=== PATIENT | female | born 2005 | race Caucasian/White ===

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

== ENCOUNTER 2024-03-11 13:22 | Inpatient (IN) | payer OTHER ==
[~2024-03-11] VITALS: Ht 165.1 cm; Wt 60.0 kg
[2024-03-11] MEDS: NICOTINE 14 MG/24 HR TRANSDERMAL TD SCH (09:00)
[~2024-03-11 13:22] MED LIST: LEVO1TAB40 PO
[2024-03-11 14:04] LABS: HEMATOCRIT 42.3 % (36.0-47.0); HEMOGLOBIN 14.1 g/dl (12.0-15.5); MEAN CORPUSCULAR HEMOGLOBIN 30.7 pg (27.0-33.0); MEAN CORPUSCULAR HGB CONC 33.3 g/dl (32.0-36.5); MEAN CORPUSCULAR VOLUME 92.2 fl (80.0-96.0); PLATELET COUNT, AUTOMATED 327 10^3/uL (150-450); RED BLOOD COUNT 4.59 10^6/uL (4.00-5.40); WHITE BLOOD COUNT 6.9 10^3/uL (4.0-10.0)
[2024-03-11 14:28] LABS: HCG, SERUM QUALITATIVE NEGATIVE (NEGATIVE)
[2024-03-11 14:33] LABS: AMPHETAMINES LEVEL URINE NEGATIVE (NEGATIVE); BARBITURATES URINE NEGATIVE (NEGATIVE); BENZODIAZEPINES URINE NEGATIVE (NEGATIVE); CANNABINOIDS URINE NEGATIVE (NEGATIVE); COCAINE METABOLITE URINE NEGATIVE (NEGATIVE); METHADONE URINE NEGATIVE (NEGATIVE); OPIATES URINE NEGATIVE (NEGATIVE); PHENCYCLIDINE URINE NEGATIVE (NEGATIVE)
[2024-03-11 14:40] LABS: ETHYL ALCOHOL (ETHANOL) < 0.003 % (0.000-0.010)
[2024-03-11 14:41] LABS: SALICYLATE LEVEL < 3.0 MG/DL (<30)
[2024-03-11 14:42] LABS: ALBUMIN 4.5 G/DL (3.2-5.2); ALKALINE PHOSPHATASE 84 U/L (35-104); ALT/SGPT 28 U/L (7.0-40); AST/SGOT 20 U/L (<34); BILIRUBIN,DIRECT 0.3 MG/DL (<0.4); BILIRUBIN,TOTAL 0.7 MG/DL (0.3-1.2); BLOOD UREA NITROGEN 22 MG/DL (9-23); CALCIUM LEVEL 9.6 MG/DL (8.5-10.1); CARBON DIOXIDE LEVEL 24 MMOL/L (20-31); CHLORIDE LEVEL 106 MMOL/L (98-107); CREATININE FOR GFR 0.65 MG/DL (0.55-1.30); GLUCOSE, FASTING 88 MG/DL (60-100); POTASSIUM SERUM 3.6 MMOL/L (3.5-5.1); SODIUM LEVEL 140 MMOL/L (136-145); TOTAL PROTEIN 7.6 G/DL (5.7-8.2)
[2024-03-11] MEDS ORDERED: HOME MED LIST COMPLETE! XX SCH (16:10)
[2024-03-11] MEDS ORDERED: MOM 30ML SUSPENSION UDC PO PRN (18:35)
[2024-03-11] MEDS ORDERED: MAALOX 30 ML SUSP *UDC PO PRN (18:35)
[2024-03-11] MEDS ORDERED: diphenhydrAMINE 25MG CAP PO PRN (18:35)
[2024-03-11] MEDS ORDERED: OLANZapine ORAL DISINTEGRATING TAB 5MG PO PRN (18:35)
[2024-03-11] MEDS ORDERED: LORazepam 1 MG TAB PO PRN (18:35)
[2024-03-11] MEDS ORDERED: IBUPROFEN 400MG TAB PO PRN (18:35)
[2024-03-11] MEDS ORDERED: ACETAMINOPHEN 325 MG TAB PO PRN (18:35)
[2024-03-11 20:54] VITALS: BP 114/70; TEMP 98.1; O2SAT 96
[2024-03-12 06:28] VITALS: BP 151/55; TEMP 98.2; O2SAT 99
[2024-03-12] MEDS: ESCITALOPRAM OXALATE 5MG TABLET (LEXAPRO) PO ONE (09:39)
[2024-03-12 15:05] VITALS: BP 121/71; TEMP 97.4; O2SAT 100
[2024-03-12] MEDS: traZODone 50 MG TAB PO PRN (21:29)
[2024-03-13 06:33] VITALS: BP 111/58; TEMP 97.9; O2SAT 100
[2024-03-13] MEDS ORDERED: LEXA1TAB PO (13:09)
[2024-03-13] MEDS: ESCITALOPRAM OXALATE 10 MG TAB (LEXAPRO) PO SCH (13:27)
[2024-03-13 15:34] VITALS: BP 112/73; TEMP 98.4; O2SAT 97
[2024-03-13] MEDS: traZODone 25MG PER 1/2 TABLET PO PRN (22:59)
[2024-03-14 06:33] VITALS: BP 128/60; TEMP 97.7; O2SAT 98
[2024-03-14] MEDS ORDERED: TRAZ-252 PO (07:50)
== END 2024-03-14 10:26 | disposition home or self-care (01) | DRG 881 ==
LOC: EDBD 13:22 → M ED 13:22 → M ED INP 18:34 → M PSY 20:48
PROVIDERS: ADMIT Psychiatry & Neurology Neurology; ATTEND Psychiatry & Neurology Neurology
DX: F32.A Depression, unspecified (principal); R45.851 Suicidal ideations; F41.9 Anxiety disorder, unspecified; Z83.3 Family history of diabetes mellitus; Z81.8 Family history of other mental and behavioral disorders; Z88.1 Allergy status to other antibiotic agents